=== PATIENT | male | born 1990 | race African-American/Black ===

== ENCOUNTER 2021-04-07 14:36 | Emergency (ER) | payer SELFPAY ==
[~2021-04-07] VITALS: Ht 182.9 cm; Wt 100.7 kg
[2021-04-07] MEDS ORDERED: AMOXICILLIN500 MG PO (16:07)
== END 2021-04-07 16:17 | disposition home or self-care (01) ==
LOC: ER 15:40
DX: J02.0 Streptococcal pharyngitis (principal)
CPT/HCPCS: 99282

== ENCOUNTER 2021-04-09 17:24 | Emergency (ER) | payer SELFPAY ==
[~2021-04-09] VITALS: Ht 182.9 cm; Wt 100.7 kg
[~2021-04-09 17:24] MED LIST: AMOXICILLIN500 MG PO
[2021-04-09] MEDS ORDERED: PENICILLIN G BENZATHINE LA 1.2 MU TBX IM STA (17:33)
[2021-04-09] MEDS ORDERED: ACETAMINOPHEN 325 MG TAB PO ONE (17:45)
[2021-04-09] MEDS ORDERED: DEXAMETHASONE SOD PHOS 10 MG/1 ML VIAL IM ONE (17:45)
== END 2021-04-09 18:35 | disposition home or self-care (01) ==
LOC: ER 17:36
DX: R50.9 Fever, unspecified (principal); J02.0 Streptococcal pharyngitis
CPT/HCPCS: 99283; J0561; J1100